=== PATIENT | female | born 1985 | race Caucasian/White ===

== ENCOUNTER 2021-06-25 17:17 | Inpatient (IN) | payer OTHER ==
[2021-06-25] MEDS ORDERED: AMPICILLIN 2,000 MG in SODIUM CHLORIDE 0.9% 100 ML IVPB STA (18:09)
[2021-06-25] MEDS ORDERED: METHYLERGONOVINE 0.2 MG/ML 1 ML AMP IM PRN (18:09)
[2021-06-25] MEDS ORDERED: LIDOCAINE 1% (PF) 10 MG/ML (30 ML SDV) SQ PRN (18:09)
[2021-06-25] MEDS ORDERED: CARBOPROST TROMETHAMINE 250 MCG/ML 1 ML AMP IM PRN (18:09)
[2021-06-25] MEDS ORDERED: TERBUTALINE 1 MG/ML VIAL SQ PRN (18:09)
[2021-06-25] MEDS ORDERED: OXYTOCIN 10 UNIT/ML 1 ML VIAL IM PRN (18:09)
[2021-06-25] MEDS ORDERED: OXYTOCIN 30 UNITS/500 ML NS 30 UNIT in SALINE 1 500ML.BAG IV SCH ×2 (18:15→22:00)
[2021-06-25] MEDS ORDERED: LACTATED RINGERS 1,000 ML IV SCH (18:15)
[2021-06-25 18:48] LABS: Glucose,Whole Blood 96 mg/dL (75-99)
[2021-06-25 19:04] LABS: Basophils % (A) 0 %; Eosinophils % (A) 1 %; HCT 37.2 % (34.0-46.0); HGB 12.2 gm/dL (11.4-16.0); Lymphocytes % (A) 29 %; MCH 30.4 pg (25.0-35.0); MCHC 32.7 g/dL (31.0-37.0); MCV 93.1 fL (80.0-100.0); Mean Platelet Volume 10.4; Monocytes # (A) 0.2 k/uL (0-1.0); Monocytes % (A) 4 %; Neutrophils # (A) 4.5 k/uL (1.3-7.7); Neutrophils % (A) 66 %; Platelet Count 152 k/uL (150-450); RDW 13.4 % (11.5-15.5); WBC 6.9 k/uL (3.8-10.6)
[2021-06-25] MEDS ORDERED: diphenhydrAMINE 50 MG CAP PO PRN (21:59)
[2021-06-25] MEDS ORDERED: ZOLPIDEM 5 MG TAB PO PRN (21:59)
[2021-06-25] MEDS ORDERED: LANOLIN CREAM 5 GM TUBE TOPICAL PRN (21:59)
[2021-06-25] MEDS ORDERED: diphenhydrAMINE 25 MG CAP PO PRN (21:59)
[2021-06-25] MEDS ORDERED: ACETAMINOPHEN TAB 325 MG TAB PO PRN (21:59)
[2021-06-25] MEDS ORDERED: HYDROCORTISONE 2.5% RECTAL CREAM 30 GM TUBE RECTAL PRN (21:59)
[2021-06-25] MEDS ORDERED: diphenhydrAMINE 50 MG/ML 1 ML VIAL IVP PRN ×2 (21:59)
[2021-06-25] MEDS ORDERED: SIMETHICONE 80 MG CHEWABLE PO PRN (21:59)
[2021-06-25] MEDS ORDERED: BENZOCAINE/MENTHOL SPRAY 1 GM/SPRAY AEROSOL TOPICAL PRN (21:59)
--- NOTE | 2021-06-25 22:00 | P.HPOB ---
History of Present Illness H&P Date: 06/25/21 Chief Complaint: IUP at 39 and one sevenths weeks, spontaneous rupture of me mbranes This is a 35-year-old 012 at 39 and one sevenths weeks that presents to labor and delivery with complaints of rupture of membranes around 7 AM. Patient states the fluid was clear in nature. Patient denies contractions. Patient has been receiving routine care which has been complicated by diagnosis of gestational diabetes for which she was diet-controlled. Patient states her blood sugars have been within normal limits. Patient has a history of HSV for which she started Valtrex 500 mg daily last week. Patient is known Rh-. On bloodwork this patient has a blood type of A-, rubella status immune, RPR is nonreactive, B surface antigen negative, HIV is negative, group beta strep culture is positive. Review of Systems Constitutional: Denies chills, Denies fatigue, Denies fever Ears, nose, mouth and throat: Denies headache Cardiovascular: Reports leg edema Respiratory: Denies dyspnea Gastrointestinal: Denies constipation, Denies diarrhea, Denies nausea, Denies vomiting Genitourinary: Reports Past Medical History History of Any Multi-Drug Resistant Organisms: None Reported Smoking Status: Former smoker Medications and Allergies Allergies Allergy/AdvReac Type Severity Reaction Status Date / Time Sulfa (Sulfonamide Allergy Rash/Hives Verified 06/25/21 17:21 Antibiotics) Exam Osteopathic Statement: *. No significant issues noted on an osteopathic structural exam other than those noted in the History and Physical/Consult. 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 Assessment and Plan (1) Term Current Visit: Yes Status: Acute Code(s): Z34.90 - ENCNTR FOR SUPRVSN OF NORMAL , UNSP, UNSP TRIMESTER SNOMED Code(s): 82637796 (2) SROM (spontaneous rupture of membranes) Current Visit: Yes Status: Acute Code(s): MIE9729 - SNOMED Code(s): 546920996 (3) Positive GBS test Current Visit: Yes Status: Acute Code(s): B95.1 - STREPTOCOCCUS, GROUP B, CAUSING DISEASES CLASSD ELSWHR SNOMED Code(s): 680988214 (4) HSV (herpes simplex virus) anogenital infection Current Visit: Yes Status: Acute Code(s): A60.9 - ANOGENITAL HERPESVIRAL INFECTION, UNSPECIFIED SNOMED Code(s): 389323280 (5) GDM (gestational diabetes mellitus), class A1 Current Visit: Yes Status: Acute Code(s): O24.410 - GESTATIONAL DIABETES MELLITUS IN , DIET CONTROLLED SNOMED Code(s): 59644143 Plan: 35-year-old 012 at 39 and one sevenths weeks that presents to labor and delivery with complaints of spontaneous rupture of membranes around 7 AM. Patient denies contractions. Patient notes good movement. Patient is known gestational diabetes, blood sugars have been well controlled. Patient is counseled on need for Pitocin augmentation of labor given the length of time since rupture of membranes and group beta strep culture positive. Patient states understanding and is willing to agree to Pitocin augmentation of labor. Patient is counseled on options for analgesia including epidural and Stadol, patient declines. Anticipate spontaneous vaginal delivery.
--- NOTE | 2021-06-25 22:03 | P.PROBDLV ---
Vaginal Delivery Note - . Vaginal Delivery Note: This 35 year old 012 at 39 and one sevenths weeks that presented to labor and delivery with complaint of spontaneous rupture of membranes at 7 AM today. Patient states she was having irregular contractions. Patient had an receiving routine care which was complicated by a diagnosis of gestational diabetes diet controlled. Patient was admitted to labor and delivery and noted to be 4 cm dilated. Clear amniotic fluid was appreciated. Given time since rupture of membranes Pitocin augmentation of labor was begun. Patient progressed through labor eventually becoming complete and began pushing. Patient had a normal spontaneous vaginal delivery of a viable female at 2140, weight of 6 lbs. 5 oz., Apgars of 8 and 9 at one and 5 minutes respectively. After two-minute delayed the umbilical cords doubly clamped and cut and the placenta was delivered spontaneous intact with a three-vessel cord being noted. On inspection the patient's vaginal vault a first-degree vaginal laceration was appreciated, the area was instilled with lidocaine and repaired with 3-0 Rapide in the usual fashion. A hemostatic left periurethral laceration was appreciated in addition, no repair was needed. Uterus is noted to be firm and below the umbilicus, estimated blood loss 100 mL. Patient and infant tolerated delivery well and are resting comfortably. All counts were noted be correct 2 at the end of delivery.
[2021-06-25] MEDS ORDERED: AMPICILLIN 1,000 MG in SODIUM CHLORIDE 0.9% 50 ML IVPB SCH (22:15)
[2021-06-25] MEDS: IBUPROFEN 600 MG TAB PO SCH (23:28)
[2021-06-26] MEDS ORDERED: Rhogam IMMUNE GLOBULIN 1,500 UNIT/1 ML IM ONE (07:00)
[2021-06-26] MEDS: SENNOSIDES-DOCUSATE SODIUM 1 EACH TAB PO SCH ×2 (07:39→23:59)
--- NOTE | 2021-06-26 09:23 | P.DS ---
Providers Date of admission: 06/25/21 18:35 Expected date of discharge: 06/26/21 Attending physician: Kyle Allen Primary care physician: Stated None - Discharge Diagnosis(es) (1) Normal spontaneous vaginal delivery Current Visit: Yes Status: Acute Hospital Course: The patient is a 35-year-old 4 para 2013 who presented to the hospital with documented spontaneous rupture of membranes and in early active labor. Her pregnancies, K by gestational diabetes with normal blood sugars well controlled with diet alone. She also has a history of herpes simplex for which she was started on Valtrex and is known to be Rh- and received RhoGAM at 28 weeks. On labor and delivery, all signs reassuring with a category 1 heart rate tracing. She had Pitocin started secondary to length of rupture of membranes and made fairly rapid progress to complete. She then pushed to a normal spontaneous vaginal delivery of a viable 6 lbs. 5 oz. baby girl with Apgars of 8 at 1 minute and 9 at 5 minutes. Her course was unremarkable vital signs remaining stable and her temperature was afebrile throughout. She was deemed stable for discharge on day 1 was discharged home to follow-up in the office in 6 weeks' time routinely. Discharge instructions included calling for any significantly increased bleeding or foul-smelling lochia, significantly increased fever or abdominal pain, perineal complaints, breast complaints, or anything else that concerned her. She was additionally instructed to have nothing in the vagina for at least 6 weeks time to include intercourse. She understood her instructions and agrees follow up as noted above. Discharge medications included only [id number] analgesic pain medications as well as continued vitamins as she has opted to breast- feed. Maternal blood type is A- and cord blood was sent for evaluation for the necessity of RhoGAM prior to discharge. Rubella status is immune. Procedures: #1. Antibiotic prophylaxis #2. Pitocin augmentation of her 3. Normal spontaneous vaginal delivery #4. Repair of perineal laceration Patient Condition at Discharge: Stable Plan - Discharge Summary Follow up Appointment(s)/Referral(s): Kyle Allen MD [STAFF PHYSICIAN] - 6 Weeks Discharge Disposition: HOME SELF-CARE
[2021-06-26] MEDS: IBUPROFEN 600 MG TAB PO SCH ×3 (10:04→23:59)
[2021-06-27 05:14] VITALS: RESP 16
[2021-06-27] MEDS: IBUPROFEN 600 MG TAB PO SCH (05:33)
[2021-06-27] MEDS: SENNOSIDES-DOCUSATE SODIUM 1 EACH TAB PO SCH (07:52)
[2021-06-27 08:28] VITALS: BP 131/84; PULSE 109; TEMP 98.4
== END 2021-06-27 09:22 | disposition home or self-care (01) | DRG 806 ==
LOC: FBPOP 17:17 → 4FBP 18:35
PROVIDERS: ADMIT Obstetrics & Gynecology Obstetrics; ATTEND Obstetrics & Gynecology
PROC: 3E033VJ Introduction of Other Hormone into Peripheral Vein, Percutaneous Approach (ICD-10-PCS; principal; 2021-06-25)
PROC: 0HQ9XZZ Repair Perineum Skin, External Approach (ICD-10-PCS; principal; 2021-06-25)
PROC: 10E0XZZ Delivery of Products of Conception, External Approach (ICD-10-PCS; principal; 2021-06-25)
DX: O24.420 Gestational diabetes mellitus in childbirth, diet controlled (principal); O98.32 Other infections with a predominantly sexual mode of transmission complicating childbirth; Z37.0 Single live birth; O70.0 First degree perineal laceration during delivery; O71.82 Other specified trauma to perineum and vulva; A60.9 Anogenital herpesviral infection, unspecified; O99.824 Streptococcus B carrier state complicating childbirth; Z3A.39 39 weeks gestation of pregnancy; Z87.891 Personal history of nicotine dependence
CPT/HCPCS: 59025; 84112; 85025; 85461; 86850; 86900; 86901; 99213